=== PATIENT | female | born 1965 | race African-American/Black ===

== ENCOUNTER → 2021-03-06 14:20 | Outpatient (BNVA) | payer OTHER, SELFPAY | PROVIDERS: PCP Physician Assistant Medical; Visit Provider Physician Assistant | DX: E66.9 Obesity, unspecified (principal); K57.90 Diverticulosis of intestine, part unspecified, without perforation or abscess without bleeding; Z68.33 Body mass index [BMI] 33.0-33.9, adult | CPT/HCPCS: 99202 ==

== ENCOUNTER 2022-03-19 18:50 | Emergency (ER) | payer OTHER, SELFPAY ==
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
[2022-03-19 19:24] VITALS: BP 200/96; PULSE 76; RESP 20; TEMP 36.6; O2SAT 100; BMI 35.6
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
[2022-03-19] MEDS: oxyCODONE HCl Immed Release 5 MG TABLET PO (23:29)
[2022-03-19] MEDS: Losartan Potassium 50 MG TABLET PO (23:30)
[2022-03-19] MEDS: Ibuprofen 600 MG TABLET PO (23:30)
[2022-03-19 23:59] VITALS: BP 161/85; PULSE 58; RESP 18; TEMP 36.6; O2SAT 99
== END 2022-03-20 | disposition home or self-care (01) ==
PROVIDERS: Emergency Provider Emergency Medicine
DX: S80.02XA Contusion of left knee, initial encounter (principal); S13.4XXA Sprain of ligaments of cervical spine, initial encounter; I10 Essential (primary) hypertension; M54.2 Cervicalgia; V43.62XA Car passenger injured in collision with other type car in traffic accident, initial encounter; Y93.9 Activity, unspecified; Y92.410 Unspecified street and highway as the place of occurrence of the external cause; Y99.9 Unspecified external cause status; Z79.899 Other long term (current) drug therapy
CPT/HCPCS: 72125; 73564; 99283